=== PATIENT | female | born 2000 | race Caucasian/White ===

== ENCOUNTER 2020-12-04 20:37 | Emergency (ER) | payer OTHER | END 2020-12-05 00:05 | disposition home or self-care (01) | LOC: CSHERS 20:37 | DX: S61.012A Laceration without foreign body of left thumb without damage to nail, initial encounter (principal); F17.290 Nicotine dependence, other tobacco product, uncomplicated; W26.0XXA Contact with knife, initial encounter; Y99.0 Civilian activity done for income or pay | CPT/HCPCS: 12001 ==